=== PATIENT | female | born 1970 | race Caucasian/White ===

== ENCOUNTER 2022-07-02 10:08 | Outpatient (CLI) | payer BC, SELFPAY ==
[2022-07-02 15:08] LABS: Cholesterol* 193 mg/dL (90-199); Glucose* 101 mg/dL (60-115); Triglycerides* 53 mg/dL (40-149)
[2022-07-02 15:19] LABS: HDL Cholesterol* 120 mg/dL (>=50); LDL Cholesterol Calculated 62 mg/dL (<100)
== END 2022-07-02 10:09 | disposition home or self-care (01) ==
PROVIDERS: PCP Family Medicine; Visit Provider Family Medicine
DX: Z13.1 Encounter for screening for diabetes mellitus (principal); Z13.6 Encounter for screening for cardiovascular disorders
CPT/HCPCS: 80061; 82947

== ENCOUNTER 2024-04-15 08:24 | Outpatient (CLI) | payer BC, SELFPAY | END 2024-04-15 08:25 | disposition home or self-care (01) | PROVIDERS: PCP Family Medicine; Visit Provider Family Medicine | DX: Z13.220 Encounter for screening for lipoid disorders (principal); Z13.1 Encounter for screening for diabetes mellitus | CPT/HCPCS: 80061; 82947 ==

== ENCOUNTER 2024-11-04 09:48 | Outpatient (CLI) | payer BC, SELFPAY ==
--- NOTE | 2024-11-04 10:12 | P.ANES_ITS ---
Anesthesia Charges Start Date/Time Anesthesia Start Date: 11/04/24 Anesthesia Start Time: 10:20 Stop Date/Time Anesthesia Stop Date: 11/04/24 Anesthesia Stop Time: 10:56 Coding CPT Codes CPT Codes: MELISSA LWR INTST SCR COLSC - [id number] ([id number]) P1 - NORMAL HEALTHY PATIENT, QK - NON DESTRUCTIVE TESTER 2-4 CNCRNT ANES PROC, QX - HANDLE TURNER SVC W/ MED DIRECTION
--- NOTE | 2024-11-04 10:12 | W.ANESCHARGE ---
Anesthesia Charges Start Date/Time Anesthesia Start Date: 11/04/24 Anesthesia Start Time: 10:20 Stop Date/Time Anesthesia Stop Date: 11/04/24 Anesthesia Stop Time: 10:56 Coding CPT Codes CPT Codes: MELISSA LWR INTST SCR COLSC - [id number] ([id number]) P1 - NORMAL HEALTHY PATIENT, QK - REGIONAL TRAINING MANAGER 2-4 CNCRNT ANES PROC, QX - CONCRETE MIXER LOADER TRUCK MOUNTED SVC W/ MED DIRECTION
--- NOTE | 2024-11-04 11:15 | P.ANES_ITS ---
Anesthesia Charges Start Date/Time Anesthesia Start Date: 11/04/24 Anesthesia Start Time: 10:20 Stop Date/Time Anesthesia Stop Date: 11/04/24 Anesthesia Stop Time: 10:56 Coding CPT Codes CPT Codes: MELISSA LWR INTST SCR COLSC - [id number] ([id number]) P1 - NORMAL HEALTHY PATIENT, QK - MARBLE INSTALLER 2-4 CNCRNT ANES PROC, QX - ARBORIST SVC W/ MED DIRECTION
--- NOTE | 2024-11-04 11:15 | W.ANESCHARGE ---
Anesthesia Charges Start Date/Time Anesthesia Start Date: 11/04/24 Anesthesia Start Time: 10:20 Stop Date/Time Anesthesia Stop Date: 11/04/24 Anesthesia Stop Time: 10:56 Coding CPT Codes CPT Codes: MELISSA LWR INTST SCR COLSC - [id number] ([id number]) P1 - NORMAL HEALTHY PATIENT, QK - LAVATORY ATTENDANT 2-4 CNCRNT ANES PROC, QX - HEEL SEATER SVC W/ MED DIRECTION
== END 2024-11-04 09:49 | disposition home or self-care (01) ==
PROVIDERS: PCP Family Medicine; Visit Provider Surgery
DX: Z12.11 Encounter for screening for malignant neoplasm of colon (principal)
CPT/HCPCS: 00812; 45378; J2704